=== PATIENT | female | born 1955 | race Caucasian/White ===

== ENCOUNTER 2017-09-03 13:34 | Emergency (ER) | payer BC ==
[2017-09-03] MEDS: HYDROCODONE/APAP (5/325) TAB PO (15:55)
[2017-09-03] MEDS: KETOROLAC 30 MG INJ IM (15:56)
== END 2017-09-03 18:12 | disposition home or self-care (01) ==
LOC: FTE 13:34
DX: M25.572 Pain in left ankle and joints of left foot (principal)
CPT/HCPCS: 73610; 96372; 99284-25

== ENCOUNTER 2018-07-10 13:56 | Emergency (ER) | payer BC ==
[2018-07-10 14:47] LABS: URINE BLOOD (Dip) POC Trace-intact (NEGATIVE); URINE GLUCOSE (Dip) POC Negative (NEGATIVE); URINE KETONES (Dip) POC Negative (NEGATIVE); URINE LEUKOCYTE EST (Dip) POC Negative (NEGATIVE); URINE NITRITE (Dip) POC Negative (NEGATIVE); URINE TOTAL PROTEIN POC Negative (NEGATIVE)
[2018-07-10] MEDS: KETOROLAC 60 MG INJ IM (14:56)
== END 2018-07-10 15:18 | disposition home or self-care (01) ==
LOC: FTE 13:56
DX: R51 Headache (principal)
CPT/HCPCS: 70450; 81003; 96372; 99285-25

== ENCOUNTER 2018-08-16 11:28 | Day surgery (SDC) | payer BC ==
[2018-08-16] MEDS ORDERED: LIDOCAINE 4% SOLUTION 50 ML BTL (12:50)
[2018-08-16] MEDS ORDERED: MIDAZOLAM 1 MG/ML 2 ML INJ ×2 (13:40)
[2018-08-16] MEDS ORDERED: FENTAnyl 50 MCG/ML VIAL (13:40)
== END 2018-08-16 14:52 | disposition home or self-care (01) ==
LOC: GIL 11:28
DX: R10.10 Upper abdominal pain, unspecified (principal); K21.0 Gastro-esophageal reflux disease with esophagitis
CPT/HCPCS: 43239; 88305